=== PATIENT | female | born 1995 | race African-American/Black ===

== ENCOUNTER 2016-07-31 19:26 | Emergency (ER) | payer OTHER ==
[~2016-07-31] VITALS: Ht 165.1 cm; Wt 66.1 kg
[~2016-07-31 19:26] MED LIST: ACET-1256 PO; ALBU1AER9 INH; HYDR0.2O4 TD
[2016-07-31 19:28] VITALS: BP 128/84; PULSE 89; TEMP 37; O2SAT 100; Ht 165.1 cm; Wt 66.1 kg
== END 2016-07-31 20:45 | disposition left against medical advice (07) ==
LOC: C.EDB 19:27 → C.EDA 20:45
DX: R11.10 Vomiting, unspecified (principal)

== ENCOUNTER → 2016-08-11 | Outpatient (CLI) | payer OTHER ==
--- NOTE | 2016-08-11 15:04 | DIAGNOSTIC IMAGING REPORT ---
ULTRASOUND RIGHT LOWER EXTREMITY VENOUS CLINICAL HISTORY: Right leg pain. COMPARISON STUDY: No priors. TECHNIQUE: Real-time, grayscale, and color Doppler sonography of the deep veins of the right lower extremity was performed from the inguinal crease to the calf. Compression and augmentation were utilized. FINDINGS: There is no sonographic evidence of deep venous thrombosis identified in the right lower extremity. The common femoral, superficial femoral, and popliteal veins are patent and normally compressible. The greater saphenous vein and the profunda femoris vein at the junction with the common femoral vein are clear. The visualized calf veins are patent. There is an indeterminant subcutaneous nodule at the indicated site of interest in the posterior right calf. This measures 2.9 x 0.5 x 1.8 cm. This appears similar to the surrounding musculature. IMPRESSION: 1. There is no sonographic evidence of deep venous thrombosis identified in the right lower extremity. 2. There is an indeterminant 2.9 x 0.5 x 1.8 cm nodule in the subcutaneous soft tissues at the indicated site of interest the posterior calf. This blends into the surrounding musculature and is of indeterminant, if any significance. Clinical correlation will be required. If this enlarges or changes in character consider repeat ultrasound for reassessment. Electronically signed by: Jluis Lima M.D. 08/11/2016 3:02 PM Dictated Date/Time: 08/11/2016 3:00 PM
== END | disposition home or self-care (01) ==
LOC: C.ULTR 14:25
PROVIDERS: ATTEND Family Medicine
DX: R22.40 Localized swelling, mass and lump, unspecified lower limb (principal)